=== PATIENT | female | born 1960 | race Caucasian/White ===

== ENCOUNTER → 2023-12-06 | Outpatient (CLI) | payer MEDICARE, OTHER ==
[~2023-12-06] MED LIST: ALBU2.5V5; ALBU90OI; ALBU90OI INH; BRINTELLIX10 MG PO; DICY20 PO; FLUSAL2505; FLUSAL2505 IH; GEMF600 PO; HYDGUAL120 PO; METF500 PO; ONDA4ODT MM; PRED20 PO; SULTRIDS PO; TRAZ100 PO; TRULICITY0.75 MG/01 SC
== END | disposition home or self-care (01) ==
LOC: LAB SHORT 11:12 → LAB 11:12
DX: J02.9 Acute pharyngitis, unspecified (principal)
CPT/HCPCS: 87081

== ENCOUNTER → 2025-05-14 | Outpatient (CLI) | payer MEDICARE, OTHER ==
[2025-05-14 15:22] LABS: BASOPHILS ABSOLUTE AUTO 0.12 K/mm3 (0.00-0.23); BASOPHILS PERCENT AUTO 1 % (0-2); EOSINOPHILS ABSOLUTE AUTO 0.32 K/mm3 (0.00-0.68); EOSINOPHILS PERCENT AUTO 3 % (0-6); Hematocrit 44.5 % (33.0-51.0); Hemoglobin 15.4 g/dL (11.5-16.0); IMMATURE GRAN ABSOLUTE AUTO 0.07 K/mm3 (0.00-0.10); IMMATURE GRAN PERCENT AUTO 1 % (0-1); LYMPHOCYTES ABSOLUTE AUTO 2.84 K/mm3 (0.84-5.20); LYMPHOCYTES PERCENT AUTO 28 % (21-46); MONOCYTES ABSOLUTE AUTO 0.75 K/mm3 (0.16-1.47); MONOCYTES PERCENT AUTO 8 % (4-13); Mean Corpuscular HGB Conc 34.6 g/dL (31.5-36.5); Mean Corpuscular Volume 91 fL (80-100); NEUTROPHILS ABSOLUTE AUTO 5.94 K/mm3 (1.96-9.15); NEUTROPHILS PERCENT AUTO 59 % (41-73); NRBC ABSOLUTE 0.00 K/mm3 (0.00-0.02); NRBC Auto 0.0 /100 WBC (0.0-0.2); Platelet Count 250 K/mm3 (150-400); RDW Coefficient Variation 12.9 % (11.7-14.2); RDW Standard Deviation 41.8 fL (35.1-46.3)
[2025-05-14 15:36] LABS: Albumin, Blood 3.7 g/dL (3.4-5.0); Albumin/Globulin Ratio 0.9 (0.8-1.8); Anion Gap 12.0 mmol/L (3-11); Bilirubin, Total 0.8 mg/dL (0.1-1.0); Blood Urea Nitrogen 8.0 mg/dL (8-24); CO2, Blood 27.0 mmol/L (21-32); Calcium, Blood 9.0 mg/dL (8.5-10.1); Chloride, Blood 98.0 mmol/L (98-108); Creatinine, Blood 0.69 mg/dL (0.40-1.00); Globulin, Blood 4.1 g/dL (2.2-4.0); Glucose, Blood 230.0 mg/dL (70-99); Potassium, Blood 4.7 mmol/L (3.5-5.5); Sodium, Blood 132.0 mmol/L (136-145); Total Protein, Blood 7.8 g/dL (6.4-8.2)
[2025-05-14 15:38] LABS: Alanine Aminotransfer (ALT/SGP 40.0 U/L (12-78); Aspartate Aminotrans (AST/SGOT 28.0 U/L (12-37)
== END ==
LOC: LAB 15:14 → LAB SHORT 15:14
PROVIDERS: Physician Assistant
DX: R07.9 Chest pain, unspecified (principal)
CPT/HCPCS: 80053; 83690; 84484; 85025; 85379

== ENCOUNTER → 2025-05-31 | Outpatient (CLI) | payer MEDICARE, OTHER ==
[2025-06-04 17:59] LABS: CALPROTECTIN,FECAL 37 ug/g (<=49); PANCREATIC ELASTASE,FECAL >800 ug/g (>=100)
== END ==
LOC: LAB 12:00 → LAB SHORT 12:00
PROVIDERS: Physician Assistant Medical
DX: R10.12 Left upper quadrant pain (principal); R19.5 Other fecal abnormalities
CPT/HCPCS: 82653; 83993